=== PATIENT | female | born 2000 | race Caucasian/White ===

== ENCOUNTER 2020-02-07 12:46 | Inpatient (IN) | payer BC ==
[~2020-02-07] VITALS: Ht 165.1 cm; Wt 93.0 kg
[2020-02-07 13:32] LABS: BASOPHILS % 0.7 % (0.0-2.0); EOSINOPHILS % 3.2 % (0.0-5.0); HEMATOCRIT. 42.4 % (36.0-48.0); HEMOGLOBIN. 14.6 g/dL (12.0-16.0); LYMPHOCYTES % 19.3 % (20.0-50.0); MEAN CORPUSCULAR HEMOGLOBIN 28.3 pg (28.0-32.0); MEAN CORPUSCULAR VOLUME 82.1 fL (81.0-99.0); MEAN PLATELET VOLUME 6.8 fl (7.4-10.4); MONOCYTES % 4.6 % (2.0-8.0); NEUTROPHILS % 72.2 % (40.0-76.0); PLATELET 298 x1000/uL (130-400); RED BLOOD CELL COUNT 5.16 mill/uL (4.2-5.4); RED CELL DISTRIBUTION WIDTH 12.4 % (11.6-14.6)
[2020-02-07 13:38] LABS: CHLORIDE 104 mEq/L (98-107)
[2020-02-07 13:42] LABS: ETHANOL BLOOD < 10 mg/dL
[2020-02-07] MEDS ORDERED: SODIUM CHLORIDE 0.9% 1,000 ML IV ONE (14:42)
[2020-02-07 15:28] LABS: BG BASE EXCESS 0.3 mmol/L (-2.0-2.0); BG DEOXYHEMOGLOBIN 9.5 % (0.0-5.0); BG HCO3 ACT 25.9 mmol/L (22.0-26.0); BG METHEMOGLOBIN 0.2 % (0.0-1.5); BG OXYGEN SATURATION 90.4 % (92.0-98.5); BG OXYHEMOGLOBIN 89.3 % (94.0-97.0); BG PCO2 45.6 mmHg (35.0-45.0); BG PH 7.373 (7.350-7.450); BG PO2 59.8 mmHg (75.0-100.0); BG SAMPLE SITE RIGHT RADIAL; BG TOTAL HEMOGLOBIN 13.6 g/dL (12.0-18.0); BG VENT MODE NASAL CANNULA
[2020-02-07 15:45] LABS: HCG SCREEN NEGATIVE
[2020-02-07] MEDS ORDERED: LEVOFLOXACIN 750MG PREMIX 150 ML IV ONE (16:45)
[2020-02-07 17:13] LABS: D-DIMER 2.14 mg/L FEU (<0.50); PROTHROMBIN TIME 11.1 sec (9.6-11.0)
[2020-02-07 17:18] LABS: CREATINE KINASE 167 IU/L (26-192)
[2020-02-07] MEDS ORDERED: ENOXAPARIN 80MG/0.8ML SYR SUBCUT ONE (17:45)
[2020-02-08 06:55] VITALS: BP 107/45
[2020-02-08] MEDS ORDERED: GABA-290 PO (07:04)
[2020-02-08] MEDS ORDERED: ESCI20TA PO (07:04)
[2020-02-08] MEDS ORDERED: QUET50TA PO ×2 (07:04)
[2020-02-08] MEDS ORDERED: QUET200T PO (07:04)
[2020-02-08] MEDS ORDERED: LAM2 PO (07:04)
[2020-02-08 08:00] VITALS: BP 105/63
[2020-02-08] MEDS ORDERED: ACETAMINOPHEN 325MG TABLET PO PRN (09:15)
[2020-02-08] MEDS ORDERED: IPRATROPIUM/ALBUTEROL 0.5-3(2.5)MG/3ML NEB HHN PRN (09:15)
[2020-02-08] MEDS ORDERED: NON FORMULARY PATIENT HOME MED XX SCH (09:15)
[2020-02-08] MEDS ORDERED: CLONIDINE 0.1MG TABLET PO PRN (09:15)
[2020-02-08] MEDS ORDERED: GUAIFENESIN 200MG/10ML SUGAR FREE UDC PO PRN (09:15)
[2020-02-08] MEDS ORDERED: ONDANSETRON HCL 4MG/2ML INJ IV PRN (09:15)
[2020-02-08] MEDS ORDERED: LORAZEPAM 0.5MG TABLET PO PRN (09:15)
[2020-02-08] MEDS ORDERED: LAMOTRIGINE 100MG TABLET PO SCH (09:32)
[2020-02-08 12:54] VITALS: BP 121/71
[2020-02-08] MEDS ORDERED: GABAPENTIN 300MG CAPSULE PO SCH (14:00)
[2020-02-08] MEDS ORDERED: AZITHROMYCIN 250 MG in DEXT 5% WATER 250 ML IV SCH (14:15)
[2020-02-08] MEDS ORDERED: CITALOPRAM HYDROBROMIDE 10MG TABLET PO SCH (15:00)
[2020-02-08 15:34] LABS: BASOPHILS % 1.1 % (0.0-2.0); EOSINOPHILS % 9.3 % (0.0-5.0); HEMATOCRIT. 38.9 % (36.0-48.0); HEMOGLOBIN. 13.1 g/dL (12.0-16.0); LYMPHOCYTES % 26.3 % (20.0-50.0); MEAN CORPUSCULAR HEMOGLOBIN 28.1 pg (28.0-32.0); MEAN CORPUSCULAR VOLUME 83.1 fL (81.0-99.0); MEAN PLATELET VOLUME 7.3 fl (7.4-10.4); MONOCYTES % 6.6 % (2.0-8.0); NEUTROPHILS % 56.7 % (40.0-76.0); PLATELET 268 x1000/uL (130-400); RED BLOOD CELL COUNT 4.68 mill/uL (4.2-5.4); RED CELL DISTRIBUTION WIDTH 12.6 % (11.6-14.6)
[2020-02-08] MEDS ORDERED: CEFTRIAXONE 1 G PREMIX 50 ML IV SCH (16:00)
[2020-02-08 16:35] VITALS: BP 120/69
[2020-02-08] MEDS ORDERED: AZITHROMYCIN 500MG in DEXTROSE 5% WATER 250ML IV NR (17:00)
[2020-02-08] MEDS ORDERED: QUETIAPINE FUMARATE 50MG TABLET PO SCH (21:00)
[2020-02-09] MEDS ORDERED: QUETIAPINE FUMARATE 50MG TABLET PO SCH (09:00)
[2020-02-09] MEDS ORDERED: AZITHROMYCIN 250 MG in DEXT 5% WATER 250 ML IV SCH (17:00)
== END 2020-02-08 16:34 | disposition home or self-care (01) | DRG 917 ==
LOC: ER 13:03 → 7WST 16:35 → EDBEDREQ 19:26 → ENRESERV 02-08 04:17
PROVIDERS: ADMIT Internal Medicine; ATTEND Internal Medicine
DX: T40.2X1A Poisoning by other opioids, accidental (unintentional), initial encounter (principal); G92 Toxic encephalopathy; J96.01 Acute respiratory failure with hypoxia; T40.4X1A Poisoning by other synthetic narcotics, accidental (unintentional), initial encounter; D72.810 Lymphocytopenia; E87.6 Hypokalemia; Z20.828 Contact with and (suspected) exposure to other viral communicable diseases; F32.9 Major depressive disorder, single episode, unspecified; F41.9 Anxiety disorder, unspecified; Y92.89 Other specified places as the place of occurrence of the external cause
CPT/HCPCS: 36415; 36600; 71045; 80053; 80320; 82375; 82550; 82728; 82805; 82962; 83605; 83615; 84145; 84484; 84703; 85025; 85379; 86141; 87635; 87804; 99291; J0456; J0696; J1650; J1956; J7030; J7060; G0480